=== PATIENT | female | born 1975 | race African-American/Black ===

== ENCOUNTER 2017-08-18 16:06 | Emergency (ER) | payer OTHER ==
--- NOTE | 2017-08-18 16:23 | PDOC ---
Rapid Medical Evaluation Chief Complaint: Injury Time Seen by Provider: 08/18/17 16:21 Medical Evaluation: Allergies Allergy/AdvReac Type Severity Reaction Status Date / Time No Known Allergies Allergy Verified 08/18/17 16:13 08/18/17 16:22 I have performed a brief in-person evaluation of this patient. The patient presents with a chief complaint of: wood door from locker fell on head while at work today, no pena, dizziness, loc, n/v. H/o athma, HLD, DM Pertinent physical exam findings:stable and in NAD I have ordered the following:nothing The patient will proceed to the ED for further evaluation Discharge Disposition - Diagnosis Minor head injury Qualifiers: Encounter type: initial encounter Qualified Code(s): S09.90XA - Unspecified injury of head, initial encounter - Referrals Referrals: Juan Luis Cornell [Primary Care Provider] - - Patient Instructions - Post Discharge Activity
[2017-08-18 16:24] VITALS: BP 164/104; PULSE 96; TEMP 98.6; BMI 38.6
[2017-08-18] MEDS ORDERED: ACETAMINOPHEN 500 MG TABLET (FP) PO ONE (17:09)
--- NOTE | 2017-08-18 17:13 | PDOC ---
History of Present Illness - General Chief Complaint: Injury Stated Complaint: INJURY TO HEAD (JOB RELATED) Time Seen by Provider: 08/18/17 16:21 History Source: Patient Exam Limitations: No Limitations - History of Present Illness Initial Comments: 08/18/17 17:10 42-year-old woman past medical history of hypertension, NIDDM, hyperlipidemia, and asthma who presents emergency departments with headache status post being struck with with door. 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 Patient states the door was not connected to the handwritten when she opened it the wooden plank fell striking her on the right frontal area. She denies loss of consciousness. She denies blurry vision, dizziness, nausea, vomiting. Past History - Past Medical History Allergies/Adverse Reactions: Allergies Allergy/AdvReac Type Severity Reaction Status Date / Time No Known Allergies Allergy Verified 08/18/17 16:13 Home Medications: Ambulatory Orders Albuterol Sulfate Inhaler - [Ventolin HFA Inhaler -] 1 - 2 inh PO QID PRN Atorvastatin Ca [Lipitor -] 10 mg PO HS 03/20/14 Ibuprofen [Motrin -] 600 mg PO TID PRN 03/20/14 Lisinopril [Prinivil -] 10 mg PO DAILY 03/20/14 Salmeterol/Fluticasone [Advair 100Mcg/50Mcg -] 1 inh PO BID PRN 03/20/14 metFORMIN HCL [Glucophage -] 500 mg PO BID 03/20/14 Asthma: Yes COPD: No Diabetes: Yes (TYPE II) HTN: Yes Hypercholesterolemia: Yes - Immunization History Immunization Up to Date: Yes - Suicide/Smoking/Psychosocial Hx Smoking History: Never smoked Hx Alcohol Use: No Substance Use Type: None Review of Systems - Review of Systems Able to Perform ROS?: Yes Is the patient limited Lithuanian proficient: No Constitutional: No: Symptoms Reported HEENTM: No: Symptoms Reported Respiratory: No: Symptoms reported Cardiac (ROS): No: Symptoms Reported ABD/GI: No: Symptoms Reported : No: Symptoms Reported Musculoskeletal: No: Symptoms Reported Integumentary: No: Symptoms Reported Neurological: Yes: See HPI *Physical Exam - Vital Signs Last Vital Signs Temp Pulse Resp BP Pulse Ox 98.6 F 96 H 18 164/104 100 08/18/17 16:13 08/18/17 16:13 08/18/17 16:13 08/18/17 16:13 08/18/17 16:13 - Physical Exam General Appearance: Yes: Appropriately Dressed. No: Apparent Distress HEENT: positive: Normal ENT Inspection Neck: positive: Trachea midline, Supple Respiratory/Chest: positive: Lungs Clear, Normal Breath Sounds. negative: Respiratory Distress, Accessory Muscle Use Cardiovascular: positive: Regular Rhythm, Regular Rate. negative: Murmur Gastrointestinal/Abdominal: positive: Normal Bowel Sounds, Soft. negative: Tender Musculoskeletal: positive: Normal Inspection. negative: CVA Tenderness Extremity: positive: Normal Inspection, Normal Range of Motion Integumentary: positive: Normal Color, Dry, Warm Neurologic: positive: analytics manager II-XII NML intact, Fully Oriented, Alert, Normal Mood/ Affect, Normal Response, Motor Strength 5/5, Finger to Nose Medical Decision Making - Medical Decision Making 08/18/17 17:12 A/P: 42-year-old female with history of hypertension, NIDDM, asthma, hyperlipidemia with right superficial headache status post trauma Cranial or 2 through 12 grossly intact. Palpation of the skull reveals no hematomas or bony deformity No hemotympanum noted Blood pressure is slightly elevated. Patient takes her usual dose of medication this afternoon. She was instructed to take her normal dose of blood per pressure medication at this time. Tylenol 975 mg orally now [id number] discharge *DC/Admit/Observation/Transfer Diagnosis at time of Disposition: Minor head injury Qualifiers: Encounter type: initial encounter Qualified Code(s): S09.90XA - Unspecified injury of head, initial encounter - Discharge Dispostion Disposition: HOME Condition at time of disposition: Stable Decision to Admit order: No - Referrals Referrals: Juan Luis Cornell [Primary Care Provider] - - Patient Instructions Printed Discharge Instructions: DI for Closed Head Injury Additional Instructions: Take Tylenol or Motrin as needed for pain. Follow lead electrical engineer's instructions for appropriate dosage. Return to emergency department for worsening headache, dizziness, blurry vision , nausea, vomiting or any other concerns. Thank you very much for choosing us to provide emergent health care needs. - Post Discharge Activity
[2017-08-18] MEDS ORDERED: ACETAMINOPHEN 325 MG TABLET (FP) ONE (17:16)
== END 2017-08-18 17:49 | disposition home or self-care (01) ==
LOC: JERFT 16:06
DX: S09.8XXA Other specified injuries of head, initial encounter (principal); W20.8XXA Other cause of strike by thrown, projected or falling object, initial encounter; Y93.89 Activity, other specified; Y92.238 Other place in hospital as the place of occurrence of the external cause; Y99.0 Civilian activity done for income or pay; I10 Essential (primary) hypertension; E11.9 Type 2 diabetes mellitus without complications; Z79.84 Long term (current) use of oral hypoglycemic drugs; E78.00 Pure hypercholesterolemia, unspecified; J45.909 Unspecified asthma, uncomplicated
CPT/HCPCS: 82962; 99281-25

== ENCOUNTER 2021-09-17 08:12 | Emergency (ER) | payer OTHER ==
[2021-09-17 08:27] VITALS: BP 168/78; PULSE 102; TEMP 98.1; BMI 38.2
== END 2021-09-17 11:13 | disposition home or self-care (01) ==
LOC: JER 08:12
DX: R05.9 Cough, unspecified (principal)
CPT/HCPCS: 0241U-QW; 71046-TC-FY; 99284-25

== ENCOUNTER 2023-03-22 15:21 | Emergency (ER) | payer OTHER ==
[2023-03-22 15:31] VITALS: BP 165/80; PULSE 116; TEMP 98; BMI 38.9
[2023-03-22 21:34] VITALS: RESP 16
== END 2023-03-22 21:35 | disposition home or self-care (01) ==
LOC: JERFT 15:21
DX: M25.562 Pain in left knee (principal); S80.912A Unspecified superficial injury of left knee, initial encounter; W22.8XXA Striking against or struck by other objects, initial encounter
CPT/HCPCS: 73562-TC-LT-FY; 93971-TC; 99284-25